=== PATIENT | female | born 1970 ===

== ENCOUNTER 2016-11-09 21:18 | Emergency (ER) | payer MEDICAID ==
[2016-11-09 21:18] VITALS: BMI 25.2
[2016-11-09 21:29] VITALS: BP 158/95; PULSE 84; RESP 16; TEMP 98.2; O2SAT 100
[2016-11-09] MEDS: Sodium Chloride 0.9% 1,000 ML IV STA (21:49)
[2016-11-09 22:05] LABS: BASO # 0.1 K/uL (0.0-0.2); BASO % 0.9 % (0.0-2.0); EOS # 0.2 K/uL (0.0-0.7); EOS % 2.7 % (0.0-4.0); HEMATOCRIT 30.4 % (34.0-47.0); LYMPH # 2.2 K/uL (1.0-4.3); LYMPH % 24.9 % (20.0-40.0); MEAN CELL VOLUME 78.9 fl (81.0-99.0); MEAN CORPUSCULAR HEMOGLOBIN 25.4 pg (27.0-31.0); MEAN CORPUSCULAR HGB CONC 32.1 g/dL (33.0-37.0); MEAN PLATELET VOLUME 8.4 fl (7.2-11.7); MONO # 0.9 K/uL (0.0-0.8); MONO % 10.2 % (0.0-10.0); NEUT # 5.3 K/uL (1.8-7.0); NEUT % 61.3 % (50.0-75.0); NRBC % 0.1 % (0.0-0.0); WHITE BLOOD COUNT 8.7 K/uL (4.8-10.8)
[2016-11-09 22:13] LABS: ALB/GLOB RATIO 1.2 (1.0-2.1); ALKALINE PHOSPHATASE 48 U/L (38-126); ALT/SGPT 38 U/L (9-52); AST/SGOT 24 U/L (14-36); BILIRUBIN,TOTAL 0.3 mg/dl (0.2-1.3); BLOOD UREA NITROGEN 14 mg/dl (7-17); CALCIUM 9.2 mg/dL (8.4-10.2); CARBON DIOXIDE 24 mmol/L (22-30); CHLORIDE 105 mmol/L (98-107); GFR AFRICAN-AMERICAN > 60; GLUCOSE,RANDOM 88 mg/dL (65-105); POTASSIUM 4.3 MMOL/L (3.6-5.0); SODIUM 138 mmol/l (132-148); TOTAL PROTEIN 7.6 G/DL (6.3-8.2)
[2016-11-09 22:16] LABS: RBC URINE 8 /hpf (0-3); URINE BILIRUBIN NEGATIVE (NEGATIVE); URINE BLOOD MODERATE (NEGATIVE); URINE COLOR YELLOW (YELLOW); URINE GLUCOSE (UA) NEG (Normal); URINE KETONE NEGATIVE (NEGATIVE); URINE LEUKOCYTE ESTERASE NEG Leu/uL (Negative); URINE PROTEIN NEGATIVE (NEGATIVE); URINE UROBILINOGEN 0.2-1.0 mg/dL (0.2-1.0); WBC URINE 1 /hpf (0-5)
--- NOTE | 2016-11-09 22:52 | ED PDOC ---
HPI: Abdomen Time Seen by Provider: 11/09/16 21:41 Chief Complaint (Nursing): Chest Pain Chief Complaint (Provider): abdominal pain History Per: Patient History/Exam Limitations: no limitations Additional Complaint(s): 45yo F in ED for eval of LLQ pain radiating to back x 1 week. admits to hx of lower abd pain-states that she has very menstrual bleeding, and intermittent vaginal bleeding(states its very heavy) and causes back pain. denies bloody stool, but admits to having diarrhea with back pain and abd pain. states she had fever and chills three days ago. Pt was seen at [facility] ED 11/06/16- UA showed hematuira-and was advised to f.u with pmd-pt states she did f.u with pmd and had labs drawn but no results at this time. denies vaginal bleeding or discharge. Past Medical History Reviewed: Historical Data, Nursing Documentation, Vital Signs Vital Signs: Last Vital Signs Temp 98.2 F 11/09/16 21:25 Pulse 84 11/09/16 21:25 Resp 16 11/09/16 21:25 BP 158/95 H 11/09/16 21:25 Pulse Ox 100 11/10/16 00:26 - Medical History PMH: HTN, Kidney Stones, Chronic Kidney Disease - Surgical History Surgical History: - Family History Family History: States: Unknown Family Hx - Immunization History Hx Tetanus Toxoid Vaccination: No Hx Influenza Vaccination: No Hx Pneumococcal Vaccination: No - Home Medications Home Medications: Ambulatory Orders Medication Instructions Recorded Lisinopril 40 mg PO DAILY 03/26/15 Ibuprofen [Motrin Tab] 400 mg PO PRN PRN 11/06/16 Ranitidine HCl 150 mg PO DAILY #10 tablet 11/06/16 Ibuprofen [Motrin] 400 mg PO Q6 #30 tab 11/10/16 - Allergies Allergies/Adverse Reactions: Allergies Allergy/AdvReac Type Severity Reaction Status Date / Time No Known Allergies Allergy Verified 11/06/16 14:44 Review of Systems ROS Statement: Except As Marked, All Systems Reviewed And Found Negative Gastrointestinal: Positive for: Abdominal Pain, Diarrhea. Negative for: Nausea , Vomiting Genitourinary Female: Positive for: Pelvic Pain. Negative for: Vaginal Discharge, Vaginal Bleeding Physical Exam - Reviewed Nursing Documentation Reviewed: Yes Vital Signs Reviewed: Yes - Physical Exam Appears: Positive for: Well, Non-toxic, No Acute Distress Skin: Positive for: Normal Color, Warm, DRY Cardiovascular/Chest: Positive for: Regular Rate, Rhythm Respiratory: Positive for: CNT, Normal Breath Sounds Gastrointestinal/Abdominal: Positive for: Bowel Sounds, Soft, Tenderness (LLQ pain) Back: Positive for: Normal Inspection. Negative for: L CVA Tenderness, R CVA Tenderness Extremity: Positive for: Normal ROM Neurologic/Psych: Positive for: Alert, Oriented - Laboratory Results Result Diagrams: 11/09/16 22:01 11/09/16 22:01 - ECG O2 Sat by Pulse Oximetry: 100 - Progress ED Course And Treament: fibroid vs diverticulitis-will order cbc/cmp/UA and CT of ab with IV constrast and TV/pelvis US,. Medical Decision Making Medical Decision Making: US: FINDINGS: Uterus/cervix: Uterus measures 12.7 x 4.6 x 5.5 cm in size. No myometrial mass. Endometrium: 1.5 cm in thickness. Right ovary: 4.0 x 2.6 x 3.6 cm in size. 2.8 x 2.1 x 2.4 cm anechoic lesion. Normal flow. Left ovary: 5.9 x 1.6 x 5.7 cm in size. 4.5 x 4.9 x 3.9 cm hypoechoic lesion with internal echoes. Normal flow. Free fluid: No significant free fluid. Bladder: Empty bladder which cannot be evaluated with this probe. Other findings: Tubal implants. IMPRESSION: 1. Probable hemorrhagic LEFT ovarian cyst. Recommend sonographic followup in 6 weeks to ensure resolution and exclude other etiologies. 2. Simple RIGHT ovarian cyst. 3. Incidental/non-acute findings are described above. Thank you for allowing us to participate in the care of your patient. Dictated and Authenticated by: Addy Ha MD 11/10/2016 12:08 AM Eastern Time ([place] & [place]) CT scn: IMPRESSION: 1. Probable ovarian cysts. See ultrasound report. 2. Mildly enlarged distal appendix. Apparent mild mucosal enhancement. No definite surrounding inflammation. Clinical correlation is needed. 3. Kidney lesion, indeterminate. Recommend nonemergent ultrasound or MRI. 4. Incidental/non-acute findings are described above. Thank you for allowing us to participate in the care of your patient. Dictated and Authenticated by: Addy Ha MD 11/10/2016 12:21 AM Eastern Time ([place] & [place]) Dx: ovaria cysts(hemorrhagic left side) pt advised to have obgyn f/u adn motrin for pain. stable vS and well appearing. Disposition - Clinical Impression Clinical Impression: Hemorrhagic cyst of left ovary - Patient ED Disposition Is Patient to be Admitted: No Counseled Patient/Family Regarding: Studies Performed, Diagnosis, Need For Followup, Rx Given - Disposition [facility] Disposition: Routine/Home Disposition Time: 00:25 Condition: STABLE Prescriptions: Ibuprofen [Motrin] 400 mg PO Q6 #30 tab Instructions: Ovarian Cyst (ED) Forms: [facility] (Nepali) Print Language: INDONESIAN
[2016-11-09] MEDS ORDERED: Iohexol 300 100 ML IJ ONE (23:11)
[2016-11-09] MEDS ORDERED: Sodium Chloride 0.9% 50 ML IV ONE (23:11)
--- NOTE | 2016-11-10 00:09 | US ---
EXAM: US Pelvis Complete, Transabdominal CLINICAL HISTORY: 45 years old, female; Pain; Pelvic pain; Additional info: Right lower quad pain TECHNIQUE: Real-time transabdominal pelvic ultrasound (complete) with image documentation. COMPARISON: No relevant prior studies available. FINDINGS: Uterus/cervix: Uterus measures 12.7 x 4.6 x 5.5 cm in size. No myometrial mass. Endometrium: 1.5 cm in thickness. Right ovary: 4.0 x 2.6 x 3.6 cm in size. 2.8 x 2.1 x 2.4 cm anechoic lesion. Normal flow. Left ovary: 5.9 x 1.6 x 5.7 cm in size. 4.5 x 4.9 x 3.9 cm hypoechoic lesion with internal echoes. Normal flow. Free fluid: No significant free fluid. Bladder: Unremarkable as visualized. Other findings: Tubal implants. IMPRESSION: 1. Probable hemorrhagic LEFT ovarian cyst. Recommend sonographic followup in 6 weeks to ensure resolution and exclude other etiologies. 2. Simple RIGHT ovarian cyst. 3. Incidental/non-acute findings are described above. EXAM: US Pelvis, Transvaginal CLINICAL HISTORY: 45 years old, female; Pain; Pelvic pain; Additional info: Right lower quad pain TECHNIQUE: Real-time transvaginal pelvic ultrasound (complete) with image documentation. Transvaginal imaging was used for better evaluation of the endometrium and adnexa. COMPARISON: No relevant prior studies available. FINDINGS: Uterus/cervix: Uterus measures 12.7 x 4.6 x 5.5 cm in size. No myometrial mass. Endometrium: 1.5 cm in thickness. Right ovary: 4.0 x 2.6 x 3.6 cm in size. 2.8 x 2.1 x 2.4 cm anechoic lesion. Normal flow. Left ovary: 5.9 x 1.6 x 5.7 cm in size. 4.5 x 4.9 x 3.9 cm hypoechoic lesion with internal echoes. Normal flow. Free fluid: No significant free fluid. Bladder: Empty bladder which cannot be evaluated with this probe. Other findings: Tubal implants.
--- NOTE | 2016-11-10 00:21 | CT ---
EXAM: CT Abdomen and Pelvis With Intravenous Contrast CLINICAL HISTORY: 45 years old, female; Pain; Abdominal pain; Localized; Left lower quadrant (llq); Prior surgery; Surgery date: 6+ months; Surgery type: ; Additional info: Llq pain TECHNIQUE: Axial computed tomography images of the abdomen and pelvis with intravenous contrast. This CT exam was performed using one or more of the following dose reduction techniques: automated exposure control, adjustment of the mA and/or kV according to patient size, and/or use of iterative reconstruction technique. Coronal and sagittal reformatted images were created and reviewed. CONTRAST: 90 mL of [id number] administered intravenously. COMPARISON: No relevant prior studies available. FINDINGS: Lower thorax: No acute findings. ABDOMEN: Liver: Unremarkable. No mass. Gallbladder and bile ducts: No calcified stones. No ductal dilation. Pancreas: No ductal dilation. No mass. Spleen: Small splenic calcification. No splenomegaly. Adrenals: Too small to characterize lesion within LEFT adrenal gland. Kidneys and ureters: 2.5 x 2.4 x 2.4 cm lesion within RIGHT kidney, indeterminate by CT criteria. RIGHT renal cyst. Mild pelviectasis of both kidneys, RIGHT greater than LEFT. Stomach and bowel: No definite mural thickening. No obstruction. Appendix: Enlarged distal appendix, measuring up to 0.9 cm in diameter. Apparent mild mucosal enhancement. No definite surrounding inflammatory stranding. PELVIS: Bladder: Unremarkable. Reproductive: Tubal implants. 3.2 x 2.8 x 2.8 cm hypodense lesion within RIGHT ovary. 1.5 x 4.3 x 4.8 cm hypodense lesion within LEFT ovary. ABDOMEN and PELVIS: Intraperitoneal space: Trace free fluid within pelvis. No free air. Bones/joints: No acute fracture. Soft tissues: Unremarkable. Vasculature: Mild atherosclerotic disease. No aneurysm. Lymph nodes: No pathologically enlarged lymph nodes. IMPRESSION: 1. Probable ovarian cysts. See ultrasound report. 2. Mildly enlarged distal appendix. Apparent mild mucosal enhancement. No definite surrounding inflammation. Clinical correlation is needed. 3. Kidney lesion, indeterminate. Recommend nonemergent ultrasound or MRI. 4. Incidental/non-acute findings are described above.
== END 2016-11-10 00:38 | disposition home or self-care (01) ==
LOC: H.ER 21:18
DX: N83.202 Unspecified ovarian cyst, left side (principal); I12.9 Hypertensive chronic kidney disease with stage 1 through stage 4 chronic kidney disease, or unspecified chronic kidney disease

== ENCOUNTER 2018-06-03 14:23 | Observation (INO) | payer MEDICAID, OTHER ==
[2018-06-03 14:23] VITALS: BMI 25.2
[2018-06-03 14:47] VITALS: RESP 18; O2SAT 99
[2018-06-03] MEDS ORDERED: Sodium Chloride 0.9% 500 ML IV STA (15:24)
--- NOTE | 2018-06-03 15:42 | ED PDOC ---
Syncope/Near Syncope/Dizziness Time Seen by Provider: 06/03/18 15:18 Chief Complaint (Nursing): Dizziness/Lightheaded Chief Complaint (Provider): Dizziness/Lightheaded History Per: Patient History/Exam Limitations: no limitations Onset/Duration Of Symptoms: Days (x3) Current Symptoms Are (Timing): Still Present Additional Complaint(s): 47 year old female with pmHx of HTN and HCL, presents to ED with elevated blood pressure for 2 days. She notes her BP was systolically 169 yesterday and 149 today. Patient reports compliance with Aspirin and Lisinopril 40mg and has not change doses. Additionally, she reports associated dizziness, chest pain, left arm pain, a nosebleed yesterday, and experiencing headache today. Patient denies nausea, vomiting, diarrhea, or shortness of breath. No numbness, tingles. PCP: Dr. Clarisse Ireland Past Medical History Reviewed: Historical Data, Nursing Documentation, Vital Signs Vital Signs: Last Vital Signs Temp 97.8 F 06/03/18 14:43 Pulse 73 06/03/18 14:43 Resp 18 06/03/18 14:43 BP 152/98 H 06/03/18 14:43 Pulse Ox 99 06/03/18 14:43 - Medical History PMH: HTN, Hypercholesterolemia, Kidney Stones, Chronic Kidney Disease - Surgical History Surgical History: - Family History Family History: States: Unknown Family Hx - Immunization History Hx Tetanus Toxoid Vaccination: No Hx Influenza Vaccination: No Hx Pneumococcal Vaccination: No - Home Medications Home Medications: Ambulatory Orders Medication Instructions Recorded Lisinopril 40 mg PO DAILY 03/26/15 Ibuprofen [Motrin Tab] 400 mg PO PRN PRN 11/06/16 Ranitidine HCl 150 mg PO DAILY #10 tablet 11/06/16 Ibuprofen [Motrin] 400 mg PO Q6 #30 tab 11/10/16 - Allergies Allergies/Adverse Reactions: Allergies Allergy/AdvReac Type Severity Reaction Status Date / Time No Known Allergies Allergy Verified 06/03/18 14:47 Review of Systems ROS Statement: Except As Marked, All Systems Reviewed And Found Negative ENT: Positive for: Nose Discharge (bleeding) Cardiovascular: Positive for: Chest Pain Respiratory: Negative for: Shortness of Breath Gastrointestinal: Negative for: Nausea, Vomiting, Diarrhea Musculoskeletal: Positive for: Arm Pain (left-sided) Neurological: Positive for: Headache, Dizziness Physical Exam - Reviewed Nursing Documentation Reviewed: Yes Vital Signs Reviewed: Yes - Physical Exam Appears: Positive for: Non-toxic, No Acute Distress Head Exam: Positive for: ATRAUMATIC, NORMAL INSPECTION, NORMOCEPHALIC Skin: Positive for: Normal Color Eye Exam: Positive for: Normal appearance, EOMI, PERRL. Negative for: Nystagmus ENT: Positive for: Normal ENT Inspection. Negative for: Pharyngeal Erythema Neck: Positive for: Normal, Painless ROM, Supple Cardiovascular/Chest: Positive for: Regular Rate, Rhythm Respiratory: Positive for: Normal Breath Sounds. Negative for: Respiratory Distress Pulses-Radial (L): 3+/4+ Pulses-Radial (R): 3+/4+ Gastrointestinal/Abdominal: Positive for: Normal Exam, Soft. Negative for: Ten derness Back: Positive for: Normal Inspection. Negative for: L CVA Tenderness, R CVA Tenderness Extremity: Positive for: Normal ROM (upper/lower. neurovascularly intact). Negative for: Tenderness, Pedal Edema, Calf Tenderness Neurologic/Psych: Positive for: Alert (x3), refractory manager II-XII (grossly intact), Oriented (x3), Other (speaking full sentences with clear speech). Negative for: Motor/Sensory Deficits, Aphasia - Laboratory Results Result Diagrams: 06/03/18 16:49 06/03/18 16:49 Lab Results: 1839: Stable. Spoke with hospitalist. Will admit tele obs. Pain free. AAOx3. Urine POC: Negative - ECG ECG: Positive for: Interpreted By Me ECG Rhythm: Positive for: Normal QRS, Normal ST Segment, Sinus Rhythm Rate: 68 O2 Sat by Pulse Oximetry: 99 (RA) Pulse Ox Interpretation: Normal - Radiology X-Ray: Read By Radiologist X-Ray Interpretation: No Acute Disease - CT Scan/US ct Other Rad Studies (CT/US): Read By Radiologist Other Rad Interpretation: no acute Medical Decision Making Medical Decision Making: Time: 1517 Initial Plan: * CT head * EKG * Labs with ddimer * CXR * Aspirin 325mg PO * IV fluids Time: 1638 --CXR FINDINGS: LUNGS: No active pulmonary disease. PLEURA: No significant pleural effusion identified, no pneumothorax apparent. CARDIOVASCULAR: No aortic atherosclerotic calcification present. Normal cardiac size. No pulmonary vascular congestion. OSSEOUS STRUCTURES: No significant abnormalities. VISUALIZED UPPER ABDOMEN: Normal. OTHER FINDINGS: None. IMPRESSION: No active disease. Time: 1655 --CT head FINDINGS: HEMORRHAGE: No intracranial hemorrhage. BRAIN: No mass effect or edema. No atrophy or chronic microvascular ischemic changes. VENTRICLES: Unremarkable. No hydrocephalus. CALVARIUM: Unremarkable. PARANASAL SINUSES: Unremarkable as visualized. No significant inflammatory changes. MASTOID AIR CELLS: Unremarkable as visualized. No inflammatory changes. OTHER FINDINGS: None. IMPRESSION: No acute intracranial abnormalities. No significant findings to account for the clinical presentation. Time: --Labs reviewed: (-) significant clinical abnormality. ---- Scribe Attestation: Documented by Keena Ruelas, acting as a scribe for Kleber Lisa MD. Provider Scribe Attestation: All medical record entries made by the Scribe were at my direction and persona lly dictated by me. I have reviewed the chart and agree that the record accurately reflects my personal performance of the history, physical exam, medical decision making, and the department course for this patient. I have also personally directed, reviewed, and agree with the discharge instructions and disposition. Disposition - Clinical Impression Clinical Impression: Dizziness, Hypertension, Chest pain - Patient ED Disposition Is Patient to be Admitted: No Counseled Patient/Family Regarding: Studies Performed, Diagnosis - Disposition Disposition Time: 15:38 Condition: FAIR - Pt Status Changed To: Hospital Disposition Of: Observation - POA Present On Arrival: None
--- NOTE | 2018-06-03 16:42 | RAD ---
Date of service: 06/03/2018 HISTORY: cp COMPARISON: No prior. FINDINGS: LUNGS: No active pulmonary disease. PLEURA: No significant pleural effusion identified, no pneumothorax apparent. CARDIOVASCULAR: No aortic atherosclerotic calcification present. Normal cardiac size. No pulmonary vascular congestion. OSSEOUS STRUCTURES: No significant abnormalities. VISUALIZED UPPER ABDOMEN: Normal. OTHER FINDINGS: None. IMPRESSION: No active disease.
[2018-06-03 16:53] LABS: BASO # 0.1 K/uL (0.0-0.2); BASO % 0.8 % (0.0-2.0); EOS # 0.1 K/uL (0.0-0.7); EOS % 1.3 % (0.0-4.0); HEMOGLOBIN 12.6 g/dL (12.0-16.0); LYMPH # 1.7 K/uL (1.0-4.3); LYMPH % 25.1 % (20.0-40.0); MEAN CELL VOLUME 83.8 fl (81.0-99.0); MEAN CORPUSCULAR HEMOGLOBIN 27.9 pg (27.0-31.0); MEAN CORPUSCULAR HGB CONC 33.3 g/dL (33.0-37.0); MEAN PLATELET VOLUME 8.8 fl (7.2-11.7); MONO # 0.5 K/uL (0.0-0.8); MONO % 6.7 % (0.0-10.0); NEUT # 4.5 K/uL (1.8-7.0); NEUT % 66.1 % (50.0-75.0); NRBC % 0.1 % (0.0-0.0); RBC 4.53 Mil/uL (3.80-5.20); RED CELL DISTRIBUTION WIDTH 13.2 % (11.5-14.5); WHITE BLOOD COUNT 6.9 K/uL (4.8-10.8)
--- NOTE | 2018-06-03 17:00 | CT ---
Date of service: 06/03/2018 PROCEDURE: CT HEAD WITHOUT CONTRAST. HISTORY: headache COMPARISON: None available. TECHNIQUE: Axial computed tomography images were obtained through the head/brain without intravenous contrast. Supplemental Coronal and Sagittal projections created and reviewed. Radiation dose: Total exam DLP = 745.76 mGy-cm. This CT exam was performed using one or more of the following dose reduction techniques: Automated exposure control, adjustment of the mA and/or kV according to patient size, and/or use of iterative reconstruction technique. FINDINGS: HEMORRHAGE: No intracranial hemorrhage. BRAIN: No mass effect or edema. No atrophy or chronic microvascular ischemic changes. VENTRICLES: Unremarkable. No hydrocephalus. CALVARIUM: Unremarkable. PARANASAL SINUSES: Unremarkable as visualized. No significant inflammatory changes. MASTOID AIR CELLS: Unremarkable as visualized. No inflammatory changes. OTHER FINDINGS: None. IMPRESSION: No acute intracranial abnormalities. No significant findings to account for the clinical presentation.
[2018-06-03 17:05] LABS: ALB/GLOB RATIO 1.1 (1.0-2.1); ALBUMIN 4.2 g/dL (3.5-5.0); BLOOD UREA NITROGEN 15 mg/dl (7-17); CALCIUM 9.4 mg/dL (8.4-10.2); GFR NON-AFRICAN AMERICAN > 60
[2018-06-03 17:19] LABS: ALT/SGPT 16 U/L (9-52); AST/SGOT 35 U/L (14-36)
[2018-06-03 23:36] VITALS: BP 133/63; PULSE 70; TEMP 97.2
--- NOTE | 2018-06-04 11:27 | CARD ---
APPROVED REPORT Date of service: 06/03/2018 EKG Measurement Heart [id number] <Conclusion> Normal sinus rhythm Normal ECG
== END 2018-06-03 21:45 | disposition home or self-care (01) ==
LOC: H.ER 14:23 → H.ERHOLD 18:39
PROVIDERS: ADMIT Student in an Organized Health Care Education/Training Program; ATTEND Student in an Organized Health Care Education/Training Program
DX: R07.9 Chest pain, unspecified (principal); R42 Dizziness and giddiness; R51 Headache; I10 Essential (primary) hypertension; E78.00 Pure hypercholesterolemia, unspecified; Z87.442 Personal history of urinary calculi
CPT/HCPCS: 70450; 71045; 80053; 81025; 84484; 85025; 85378; 93005; 96360; 96361; 99284; G0378; J7040

== ENCOUNTER 2018-08-25 14:15 | Emergency (ER) | payer MEDICAID ==
[2018-08-25 14:15] VITALS: BMI 25.2
[2018-08-25 14:27] VITALS: TEMP 98.2
[2018-08-25] MEDS ORDERED: Labetalol 5mg/ml (4ml) IVP STA ×2 (15:39→18:27)
--- NOTE | 2018-08-25 15:54 | ED PDOC ---
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 She reports noticing that her blood pressure has been elevated recently despite compliance with medications. Otherwise, she denies fever, chills, chest pain, shortness of breath, or previous Hx of DVT. Past Medical History Reviewed: Historical Data, Nursing Documentation, Vital Signs Vital Signs: Last Vital Signs Temp 98.2 F 08/25/18 14:27 Pulse 71 08/25/18 14:27 Resp 18 08/25/18 14:27 BP 175/110 H 08/25/18 14:27 Pulse Ox 99 08/25/18 14:27 Primary Care Provider: Clarisse Farmer - Medical History PMH: HTN, Hypercholesterolemia, Kidney Stones, Chronic Kidney Disease - Surgical History Surgical History: - Family History Family History: States: Unknown Family Hx - Immunization History Hx Tetanus Toxoid Vaccination: No Hx Influenza Vaccination: No Hx Pneumococcal Vaccination: No - Home Medications Home Medications: Ambulatory Orders Medication Instructions Recorded Lisinopril 40 mg PO DAILY 03/26/15 Ranitidine HCl 150 mg PO DAILY #10 tablet 11/06/16 Ibuprofen [Motrin] 400 mg PO Q6 #30 tab 11/10/16 Ferrous Sulfate [Feosol] 325 mg PO DAILY #10 tab 08/25/18 - Allergies Allergies/Adverse Reactions: Allergies Allergy/AdvReac Type Severity Reaction Status Date / Time No Known Allergies Allergy Verified 08/25/18 14:26 Review of Systems ROS Statement: Except As Marked, All Systems Reviewed And Found Negative Constitutional: Negative for: Fever, Chills ENT: Positive for: Nose Congestion Cardiovascular: Negative for: Chest Pain Respiratory: Negative for: Shortness of Breath Musculoskeletal: Positive for: Other (left hip pain) Neurological: Positive for: Weakness, Headache, Dizziness Physical Exam - Reviewed Nursing Documentation Reviewed: Yes Vital Signs Reviewed: Yes - Physical Exam Appears: Positive for: Non-toxic, No Acute Distress Head Exam: Positive for: ATRAUMATIC, NORMAL INSPECTION, NORMOCEPHALIC Skin: Positive for: Normal Color Eye Exam: Positive for: Normal appearance, EOMI, PERRL ENT: Positive for: Normal ENT Inspection. Negative for: Pharyngeal Erythema Neck: Positive for: Normal, Supple Cardiovascular/Chest: Positive for: Regular Rate, Rhythm Respiratory: Positive for: Normal Breath Sounds. Negative for: Respiratory Distress Gastrointestinal/Abdominal: Positive for: Normal Exam, Soft. Negative for: Tenderness Extremity: Positive for: Normal ROM (upper/lower). Negative for: Pedal Edema, Calf Tenderness Neurological/Psych: Positive for: Awake, Alert, Normal Tone, Symmetric/Intact Strength (5/5), Oriented, vocal music teacher II-XII (grossly intact). Negative for: Motor/Sensory Deficits - Laboratory Results Result Diagrams: 08/25/18 16:18 08/25/18 16:18 - ECG O2 Sat by Pulse Oximetry: 99 (RA) Pulse Ox Interpretation: Normal Medical Decision Making Medical Decision Making: Time: 1522 Initial Plan: * CT head * EKG * Labs * Labetelol IVP 1640 Labs reviewed: (+) anemia, however, patient reports Hx of anemia. Otherwise, within normal limits. 1756 CT Head FINDINGS: HEMORRHAGE: No intracranial hemorrhage. BRAIN: No mass effect or edema. No atrophy or chronic microvascular ischemic changes. VENTRICLES: No hydrocephalus. CALVARIUM: Unremarkable. PARANASAL SINUSES: Unremarkable as visualized. No significant inflammatory changes. MASTOID AIR CELLS: Unremarkable as visualized. No inflammatory changes. OTHER FINDINGS: None. IMPRESSION: No acute intracranial pathology identified. 1816 Repeat BP and second dose of Labetelol ordered 1829 Repeat BP 176/101, reports she feels somewhat improved. Patient stable for d/c home with diagnosis of iron-deficiency anemia and hypertension. Discussed all findings. Advised to follow up with PMD. Return parameters discussed and all questions answered. Scribe Attestation: Documented by Keena Ruelas, acting as a scribe for Jewel Osborne MD. Provider Scribe Attestation: All medical record entries made by the Scribe were at my direction and personally dictated by me. I have reviewed the chart and agree that the record accurately reflects my personal performance of the history, physical exam, medical decision making, and the department course for this patient. I have also personally directed, reviewed, and agree with the discharge instructions and disposition. Disposition - Clinical Impression Clinical Impression: Hypertension, Anemia - Patient ED Disposition Is Patient to be Admitted: No Counseled Patient/Family Regarding: Studies Performed, Diagnosis, Need For Followup, Rx Given - Disposition Disposition: Routine/Home Disposition Time: 17:50 Condition: IMPROVED Additional Instructions: Seguir con el Dr. Farmer en 1-2 barroso. volver a la val de urgencias con cualquier empeoramiento o sntomas relacionados Prescriptions: Ferrous Sulfate [Feosol] 325 mg PO DAILY #10 tab Instructions: Anemia Caused by Low Iron, High Blood Pressure (DC) Forms: [employer] (Divehi), [employer] (Nepali) Print Language: AZERBAIJANI
[2018-08-25 16:24] LABS: BASO # 0.1 K/uL (0.0-0.2); BASO % 0.9 % (0.0-2.0); EOS # 0.3 K/uL (0.0-0.7); EOS % 4.3 % (0.0-4.0); HEMOGLOBIN 10.9 g/dL (12.0-16.0); LYMPH # 1.7 K/uL (1.0-4.3); LYMPH % 26.8 % (20.0-40.0); MEAN CELL VOLUME 80.3 fl (81.0-99.0); MEAN CORPUSCULAR HEMOGLOBIN 26.3 pg (27.0-31.0); MEAN CORPUSCULAR HGB CONC 32.7 g/dL (33.0-37.0); MEAN PLATELET VOLUME 8.8 fl (7.2-11.7); MONO # 0.6 K/uL (0.0-0.8); MONO % 9.2 % (0.0-10.0); NEUT # 3.8 K/uL (1.8-7.0); NEUT % 58.8 % (50.0-75.0); NRBC % 0.1 % (0.0-0.0); RBC 4.16 Mil/uL (3.80-5.20); WHITE BLOOD COUNT 6.5 K/uL (4.8-10.8)
[2018-08-25 16:33] LABS: ALB/GLOB RATIO 1.2 (1.0-2.1); ALT/SGPT 19 U/L (9-52); AST/SGOT 22 U/L (14-36); BLOOD UREA NITROGEN 12 mg/dl (7-17); CALCIUM 8.8 mg/dL (8.4-10.2); GFR NON-AFRICAN AMERICAN > 60
[2018-08-25] MEDS ORDERED: Labetalol 5mg/ml (4ml) ONE ×2 (16:57→18:41)
[2018-08-25 17:02] VITALS: RESP 17
--- NOTE | 2018-08-25 18:01 | CT ---
Date of service: 08/25/2018 PROCEDURE: CT HEAD WITHOUT CONTRAST. HISTORY: headache COMPARISON: Noncontrast head CT performed 06/03/18 TECHNIQUE: Axial computed tomography images were obtained through the head/brain without intravenous contrast. Radiation dose: Total exam DLP = 698.19 mGy-cm. This CT exam was performed using one or more of the following dose reduction techniques: Automated exposure control, adjustment of the mA and/or kV according to patient size, and/or use of iterative reconstruction technique. FINDINGS: HEMORRHAGE: No intracranial hemorrhage. BRAIN: No mass effect or edema. No atrophy or chronic microvascular ischemic changes. VENTRICLES: No hydrocephalus. CALVARIUM: Unremarkable. PARANASAL SINUSES: Unremarkable as visualized. No significant inflammatory changes. MASTOID AIR CELLS: Unremarkable as visualized. No inflammatory changes. OTHER FINDINGS: None. IMPRESSION: No acute intracranial pathology identified.
[2018-08-26 01:15] VITALS: BP 162/109; PULSE 65
--- NOTE | 2018-08-26 10:56 | CARD ---
APPROVED REPORT Date of service: 08/25/2018 EKG Measurement Heart [id number] <Conclusion> Normal sinus rhythm Normal ECG
[2018-08-29 04:59] VITALS: O2SAT 99
== END 2018-08-25 20:10 | disposition home or self-care (01) ==
LOC: H.ER 14:15
DX: I10 Essential (primary) hypertension (principal); D50.9 Iron deficiency anemia, unspecified; E78.00 Pure hypercholesterolemia, unspecified; I12.9 Hypertensive chronic kidney disease with stage 1 through stage 4 chronic kidney disease, or unspecified chronic kidney disease